=== PATIENT | female | born 1990 | race Caucasian/White ===

== ENCOUNTER 2016-05-10 13:18 | Emergency (ER) | payer SELFPAY ==
[~2016-05-10] VITALS: Ht 160 cm; Wt 141.2 kg
[~2016-05-10 13:18] MED LIST: ADDERALL30 MG PO; ALBUTEROL SULF8.5 GM IH; BENTYL20 MG PO; BUTALB-APAP-CA1 EACH; FLEXERIL10 MG PO; HYDROCODON-ACE1 EAC7; INDERAL10 MG; KADIAN10 MG PO; KLONOPIN1 MG PO; MOTRIN600 MG PO; MOTRIN800 MG PO; NAPROSYN500 MG PO; NATALCARE RX1 TABLE1 PO; NOHOMEMEDS; PERCOCET 5/31 TABLET PO; PREDNISONE10 MG PO; PRENATABS FA T1 EACH PO; PRENATAL1 EACH; PROMETHAZINE HC25 M1 PO; ROBITUSSIN AC,T10 ML PO; TERAZOL 380 MG VG; TRAMADOL HCL50 MG PO; TRI-SPRINTEC1 EACH; ULTRAM50 MG PO; VALIUM5 MG PO; XANAX0.5 MG PO
[2016-05-10 13:50] LABS: ADD MIUA? NO; BILIRUBIN NEGATIVE; BLOOD NEGATIVE; COLOR YELLOW ((YELLOW)); GLUCOSE (STRIP) NEGATIVE; KETONES NEGATIVE; LEUKOCYTES NEGATIVE; NITRITE NEGATIVE; PROTEIN (STRIP) NEGATIVE; SPECIFIC GRAVITY 1.024 (1.000-1.030); UCUL ADDED? NO; UROBILINOGEN 0.2 MG/DL (0.2-1.0)
[2016-05-10 13:55] LABS: HEMATOCRIT 39.5 % (36.0-46.0); MCH 26.7 PG (29.0-34.0); MCHC 32.7 G/DL (30.0-36.0); MCV 81.8 FL (83-99); MEAN PLAT.VOLUME 9.6 uM^3 (9.5-12.4); PLATELET COUNT 352 K/uL (156-360); RBC DIS.WIDTH-CV 14.3 % (11.8-14.6); RBC DIS.WIDTH-SD 41.9 % (39-53); RED BLOOD COUNT 4.83 M/uL (3.80-5.20); WHITE BLOOD COUNT 8.7 K/uL (4.1-10.2)
[2016-05-10 14:07] LABS: CHLORIDE 109 mEq/L (99-109); SODIUM 138 mEq/L (136-147)
[2016-05-10 14:09] LABS: GLUCOSE 111 mg/dL (70-99)
[2016-05-10 14:10] LABS: ANION GAP 4 MEQ/L (2-14)
[2016-05-10 14:13] LABS: GFR ESTIMATE (CALCULATED) > 59 mL/min/
[2016-05-10 14:14] LABS: UREA NITROGEN (BUN) 13 mg/dL (9-23)
[2016-05-10 14:22] LABS: QUANTITATIVE HCG < 4.0 MIU/ML
[2016-05-10] MEDS ORDERED: PERCOCET 5/31 TABLET PO (17:08)
[2016-05-10 17:19] VITALS: BP 142/88
== END 2016-05-10 17:20 | disposition home or self-care (01) ==
LOC: EME 13:18
PROVIDERS: Nurse Practitioner Family
DX: N83.201 Unspecified ovarian cyst, right side (principal); J45.909 Unspecified asthma, uncomplicated; Z88.6 Allergy status to analgesic agent; Z88.8 Allergy status to other drugs, medicaments and biological substances
CPT/HCPCS: 76856; 80048; 81003; 84702; 85027; 99281; 99284

== ENCOUNTER 2016-05-13 21:40 | Emergency (ER) | payer SELFPAY ==
[~2016-05-13] VITALS: Ht 160 cm; Wt 140.6 kg
[2016-05-13 22:44] LABS: HEMATOCRIT 38.8 % (36.0-46.0); MCHC 33.5 G/DL (30.0-36.0); MCV 80.7 FL (83-99); MEAN PLAT.VOLUME 9.9 uM^3 (9.5-12.4); PLATELET COUNT 399 K/uL (156-360); RBC DIS.WIDTH-CV 14.8 % (11.8-14.6); RBC DIS.WIDTH-SD 42.7 % (39-53); RED BLOOD COUNT 4.81 M/uL (3.80-5.20); WHITE BLOOD COUNT 10.8 K/uL (4.1-10.2)
[2016-05-13 22:50] LABS: ADD MIUA? YES; BILIRUBIN NEGATIVE; BLOOD NEGATIVE; COLOR YELLOW ((YELLOW)); GLUCOSE (STRIP) NEGATIVE; KETONES NEGATIVE; LEUKOCYTES SMALL; NITRITE NEGATIVE; PROTEIN (STRIP) NEGATIVE; UROBILINOGEN 0.2 MG/DL (0.2-1.0)
[2016-05-13 22:56] LABS: CHLORIDE 105 mEq/L (99-109); POTASSIUM 4.8 mEq/L (3.7-5.4); SODIUM 138 mEq/L (136-147)
[2016-05-13 22:58] LABS: GLUCOSE 91 mg/dL (70-99)
[2016-05-13 22:59] LABS: ANION GAP 11 MEQ/L (2-14)
[2016-05-13 23:00] LABS: TOTAL BILIRUBIN 0.2 mg/dL (0.0-1.0)
[2016-05-13 23:02] LABS: ALKALINE PHOSPHATASE 58 IU/L (3-129); GFR ESTIMATE (CALCULATED) > 59 mL/min/
[2016-05-13 23:03] LABS: UREA NITROGEN (BUN) 14 mg/dL (9-23)
[2016-05-13 23:05] LABS: LIPASE 11 U/L (1.0-51.0)
[2016-05-13 23:11] LABS: QUANTITATIVE HCG < 4.0 MIU/ML
[2016-05-13 23:29] LABS: EPITHELIAL CELLS 3+; MUCUS TRACE
[2016-05-13 23:30] LABS: CASTS NONE SEEN /LPF
[2016-05-13 23:31] LABS: BACTERIA RARE; CRYSTALS NONE SEEN; RED BLOOD CELLS NONE SEEN /HPF (0-5); UCUL ADDED? NO; WHITE BLOOD CELLS 0-5 /HPF (0-5)
[2016-05-14] MEDS ORDERED: ZOFRAN8 MG PO (01:58)
[2016-05-14] MEDS ORDERED: PERCOCET 5/31 TABLET PO (02:01)
[2016-05-14 02:15] VITALS: BP 134/89
== END 2016-05-14 02:32 | disposition home or self-care (01) ==
LOC: EME 21:40
PROVIDERS: Emergency Medicine
DX: N83.201 Unspecified ovarian cyst, right side (principal); R10.31 Right lower quadrant pain; Z88.6 Allergy status to analgesic agent
CPT/HCPCS: 74177; 76856; 80053; 81003; 83690; 84702; 85027; 99281; 99285; J1885; J2405; J3010; J7030

== ENCOUNTER 2016-11-15 11:09 | Emergency (ER) | payer OTHER ==
[~2016-11-15] VITALS: Ht 162.6 cm; Wt 126.5 kg
[~2016-11-15 11:09] MED LIST changes: +ZOFRAN8 MG PO
[2016-11-15 13:16] LABS: INTERNAL CONTROL VALID? YES; MONOSPOT (MONONUCLEOSIS SEROL) NEGATIVE
[2016-11-15] MEDS ORDERED: ACETAMINOP-CODEI5 ML PO (15:03)
[2016-11-15 15:12] VITALS: BP 109/72
== END 2016-11-15 15:10 | disposition home or self-care (01) ==
LOC: EME 11:09
PROVIDERS: Emergency Medicine
DX: J02.9 Acute pharyngitis, unspecified (principal); E86.0 Dehydration; J45.909 Unspecified asthma, uncomplicated; F32.9 Major depressive disorder, single episode, unspecified; F43.10 Post-traumatic stress disorder, unspecified; F17.210 Nicotine dependence, cigarettes, uncomplicated
CPT/HCPCS: 86308; 87651 90; 99281; 99285; J0561; J1100; J7030

== ENCOUNTER 2017-02-05 23:25 | Emergency (ER) | payer OTHER ==
[~2017-02-05] VITALS: Ht 162.6 cm; Wt 113.0 kg
[~2017-02-05 23:25] MED LIST changes: +ACETAMINOP-CODEI5 ML PO
[2017-02-06] MEDS ORDERED: ULTRAM50 MG PO (00:27)
[2017-02-06] MEDS ORDERED: PEN-VEE K,VEET500 MG PO (00:27)
[2017-02-06] MEDS ORDERED: TYLENOL WITH C1 EACH PO (00:38)
[2017-02-06 00:43] VITALS: BP 115/99
== END 2017-02-06 00:52 | disposition home or self-care (01) ==
LOC: EME 23:25
PROC: 3E0T3BZ Introduction of Anesthetic Agent into Peripheral Nerves and Plexi, Percutaneous Approach (ICD-10-PCS; principal; 2017-02-05)
DX: K08.89 Other specified disorders of teeth and supporting structures (principal); K03.81 Cracked tooth; R68.84 Jaw pain; R51 Headache; F17.200 Nicotine dependence, unspecified, uncomplicated
CPT/HCPCS: 99281; 99284